=== PATIENT | female | born 1975 | race Caucasian/White ===

== ENCOUNTER 2017-05-23 12:49 | Emergency (ER) | payer BC ==
[~2017-05-23] VITALS: Ht 160 cm; Wt 67.6 kg
[~2017-05-23 12:49] MED LIST: CETI10TA84 PO; ESCI10TA17 PO; LABE1TAB28 PO
[2017-05-23 12:59] VITALS: Ht 160 cm; Wt 67.6 kg
[2017-05-23] MEDS ORDERED: SODIUM CHLORIDE 0.9% 1000ML 1,000 ML IV STA (13:51)
--- NOTE | 2017-05-23 14:32 | EMERGENCY ROOM VISIT NOTE ---
History First contact with patient: 13:35 Chief Complaint: ILLNESS Stated Complaint: FLU, MUCUS, ACHES, DEHYDRATED FEELING History of Present Illness The patient is a 41 year old female who presents to the Emergency Room with complaints of sinus congestion, drainage, cough, scratchy throat, body aches, chills for the past 8 days. Patient states she has been feeling weak and tired , has had a decreased appetite and just not wanting to drink, and is concerned she may be dehydrated, which is what prompted her to come to the emergency department today. Patient was seen in an urgent care 5 days ago, was told she most likely had a virus but was provided with a prescription for Augmentin to take if her symptoms continued. She states that she started the Augmentin 3 days ago and has been taking, she has noticed some improvement in her nasal congestion and drainage, but continues to feel very tired, is concerned that she has not improved after 8 days of illness. She is also concerned for the possibility of the flu. She has not checked her temperature, but states she has felt hot and cold at home. She has been taking Advil and Sudafed for her sinus headaches. She does report a history of chronic sinusitis and was supposed to have sinus surgery a few years ago, but then her symptoms seemed to improve. She also has allergies and hypertension. She denies any neck pain or stiffness, vision changes, chest pain, shortness of breath, back pain, abdominal pain, nausea or vomiting, diarrhea, or rash. She denies any dysuria, urinary frequency, or foul-smelling urine, but does note that her urine has been darker and cloudy recently. Review of Systems A complete 10 point review of systems was reviewed with the patient with pertinent positives and negatives as per history of present illness. All else were negative. Past Medical/Surgical History Medical Problems: (1) Anxiety (2) Chronic Sinusitis, Unspecified (3) Hypertension (4) Hypothyroidism Nos Surgical Problems: (1) Hx of myomectomy Social History Smoking Status: Never Smoker Alcohol Use: none Drug Use: none Marital Status: Housing Status: lives with family Current/Historical Medications Scheduled Cetirizine (Zyrtec), 10 MG PO DAILY Labetalol (Normodyne), 100 MG PO BID Triamcinolone Acetonide (Nasal (Nasacort Allergy 24Hr), 1 SPRAY SPENCER BID Allergies Reviewed in chart Physical Exam Vital Signs Date Time Temp Pulse Resp B/P (MAP) Pulse Ox O2 Delivery O2 Flow Rate FiO2 05/23/17 16:51 37.6 113 20 128/71 98 05/23/17 16:02 107 20 158/77 97 Room Air 05/23/17 14:53 104 16 127/69 97 Room Air 05/23/17 12:59 37.4 102 18 113/70 97 Room Air Physical Exam CONSTITUTIONAL: Pleasant and cooperative. No acute distress. Mildly dehydrated , but otherwise well appearing and well nourished. HEENT: Normocephalic, atraumatic. Tenderness to palpation/percussion of frontal and maxillary sinuses. No facial swelling or erythema. PERRL, EOMI, conjunctiva normal. TMs normal bilaterally. Pharynx normal, no erythema or swelling. Tacky mucous membranes. NECK: Supple, full active range of motion without discomfort. No cervical adenopathy. RESPIRATORY: Clear to auscultation bilaterally with no wheezing, crackles, rhonchi or stridor. Equal expansion bilaterally. CARDIOVASCULAR: Regular rate and rhythm with no murmurs, rubs or gallops. Normal peripheral perfusion. No edema. GASTROINTESTINAL: Soft, nontender, nondistended. No palpable masses or HSM. Bowel sounds present in all quadrants. MUSCULOSKELETAL: Full range of motion of all joints without discomfort. INTEGUMENTARY: No rash or other significant dermatologic conditions noted. NEUROLOGIC: Alert and oriented X 4 with normal affect. Cranial nerves II-XII grossly intact. No focal neurologic deficits noted. Normal speech. Normal strength and sensation of all extremities. Normal gait observed. Medical Decision & Procedures ER Provider Diagnostic Interpretation: CHEST 2 VIEWS ROUTINE CLINICAL HISTORY: Fever, cough. COMPARISON STUDY: No previous studies for comparison. FINDINGS: The cardiac and mediastinal contours are normal. There is no evidence of focal pulmonary consolidation. There is no evidence of failure. No pleural effusions are visualized. IMPRESSION: No active disease in the chest. Laboratory Results 05/23/17 14:00 Red Blood Count 4.17, Mean Corpuscular Volume 88.5, Mean Corpuscular Hemoglobin 29.3, Mean Corpuscular Hemoglobin Concent 33.1, Mean Platelet Volume 9.7, Neutrophils (%) (Auto) 66.2, Lymphocytes (%) (Auto) 20.1, Monocytes (%) (Auto) 11.7, Eosinophils (%) (Auto) 1.2, Basophils (%) (Auto) 0.2, Neutrophils # (Auto ) 6.83, Lymphocytes # (Auto) 2.07, Monocytes # (Auto) 1.20, Eosinophils # (Auto ) 0.12, Basophils # (Auto) 0.02 05/23/17 14:00 Test 05/23/17 14:00 05/23/17 14:20 White Blood Count 10.30 K/uL (4.8-10.8) Red Blood Count 4.17 M/uL (4.2-5.4) Hemoglobin 12.2 g/dL (12.0-16.0) Hematocrit 36.9 % (37-47) Mean Corpuscular Volume 88.5 fL (80-100) Mean Corpuscular Hemoglobin 29.3 pg (25-34) Mean Corpuscular Hemoglobin Concent 33.1 g/dl (32-36) Platelet Count 414 K/uL (130-400) Mean Platelet Volume 9.7 fL (7.4-10.4) Neutrophils (%) (Auto) 66.2 % Lymphocytes (%) (Auto) 20.1 % Monocytes (%) (Auto) 11.7 % Eosinophils (%) (Auto) 1.2 % Basophils (%) (Auto) 0.2 % Neutrophils # (Auto) 6.83 K/uL (1.4-6.5) Lymphocytes # (Auto) 2.07 K/uL (1.2-3.4) Monocytes # (Auto) 1.20 K/uL (0.11-0.59) Eosinophils # (Auto) 0.12 K/uL (0-0.5) Basophils # (Auto) 0.02 K/uL (0-0.2) RDW Standard Deviation 43.5 fL (36.4-46.3) RDW Coefficient of Variation 13.5 % (11.5-14.5) Immature Granulocyte % (Auto) 0.6 % Immature Granulocyte # (Auto) 0.06 K/uL (0.00-0.02) Anion Gap 5.0 mmol/L (3-11) Est Creatinine Clear Calc Drug Dose 94.2 ml/min Estimated GFR () 118.3 Estimated GFR (Non- 102.1 BUN/Creatinine Ratio 9.7 (10-20) Calcium Level 9.1 mg/dl (8.5-10.1) Total Bilirubin 0.3 mg/dl (0.2-1) Aspartate Amino Transf (AST/SGOT) 8 U/L (15-37) Alanine Aminotransferase (ALT/SGPT) 31 U/L (12-78) Alkaline Phosphatase 71 U/L (45-117) Total Protein 7.9 gm/dl (6.4-8.2) Albumin 3.6 gm/dl (3.4-5.0) Globulin 4.3 gm/dl (2.5-4.0) Albumin/Globulin Ratio 0.8 (0.9-2) Urine Color YELLOW Urine Appearance CLEAR (CLEAR) Urine pH 5.0 (4.5-7.5) Urine Specific [place] 1.014 (1.000-1.030) Urine Protein NEG (NEG) Urine Glucose (UA) NEG (NEG) Urine Ketones NEG (NEG) Urine Occult Blood NEG (NEG) Urine Nitrite NEG (NEG) Urine Bilirubin NEG (NEG) Urine Urobilinogen NEG (NEG) Urine Leukocyte Esterase NEG (NEG) Urine Test NEG (NEG) Influenza Type A (RT-PCR) Neg for Influ A (NEG) Influenza Type A Antigen Neg for Influ A (NEG) Influenza Type B Antigen Neg for Influ B (NEG) Influenza Type B (RT-PCR) Neg for Influ B (NEG) Medications Administered Medications (Trade) Dose Ordered Sig/Darius Route Start Time Stop Time Status Last Admin Dose Admin Sodium Chloride 1,000 ml @ 999 mls/hr Q1H1M STAT IV 05/23/17 13:51 05/23/17 14:51 DC 05/23/17 14:30 999 MLS/HR Ketorolac Tromethamine (Toradol Inj) 15 mg NOW STAT IV 05/23/17 16:05 05/23/17 16:06 DC 05/23/17 16:41 15 MG Albuterol (Ventolin Hfa Inhaler) 2 puffs NOW ONCE INH 05/23/17 16:30 05/23/17 16:31 DC 05/23/17 16:41 2 PUFFS Medical Decision CC: Patient presenting with complaint of flulike symptoms, body aches, dehydration Interpretation of Labs: No leukocytosis, no anemia, no significant electrolyte abnormalities, normal renal function, normal liver enzymes. Influenza A/B negative. UA negative, urine negative. Differential Diagnosis: Includes, but not limited to viral URI, sinusitis, influenza, otitis media, bronchitis, pneumonia, dehydration, electrolyte abnormality, among others. Medication Reconciliation: I attest that I have personally reviewed the patient' s current medication list. Vital signs review: I reviewed the patient's vital signs and interpret them as follows: T: Afebrile; BP: Normotensive; HR: Tachycardic; RR: Within normal limits; Pulse Ox: Within normal limits on room air. Blood pressure screening: The patient was found to have normal blood pressure on screening and does not require follow-up for repeat blood pressure check. Summary: Patient was evaluated at bedside, history and physical exam performed. Patient alert and oriented, in no acute distress and nontoxic appearing, resting calmly in the stretcher. Patient appears mildly dehydrated. Lungs are clear to auscultation, she does have a dry raspy cough. Orders were placed at bedside for labs, UA and urine , influenza, IV fluids for hydration, IV Toradol for body aches, chest x-ray to evaluate for pneumonia. Patient discussed with Dr. Huston, who agrees with my assessment and plan. Labs reviewed as above, no acute abnormalities. Influenza is negative. Chest x-ray negative for any acute abnormalities, specifically no pneumonia. Patient reassessed multiple times throughout ED stay, she reports she is improved after Toradol and IV hydration/oral fluids. I discussed all results with the patient and plan for discharge. She is concerned about her cough, she is asking for something else to treat this. States that her cough is keeping her up at night, and reports that she has used inhalers in the past when she gets sick like this, I did provide her with an albuterol inhaler. She is slightly more tachycardic, however this is right after using albuterol, and patient continues to feel improved. Patient was instructed to follow closely with her PCP if her symptoms do not improve, and to continue the Augmentin she was already prescribed. She was also given strict return precautions should her symptoms worsen. The patient verbalized understanding of all discharge instructions and was comfortable with the plan. The patient was discharged home in stable condition and ambulatory. Head Trauma GCS Score: 15 Impression Primary Impression: Bronchitis Additional Impression: Sinusitis Departure Information Dispostion Home / Self-Care Condition GOOD Referrals Herbie Loco M.D. (PCP) Patient Instructions ED Headache Sinus, ED Sinusitis Abx Tx, ED URI Viral, My [facility] Additional Instructions You were seen in the emergency department for your bronchitis and sinus infection. Continue taking your prescribed Augmentin for the full course. For your cough, you may use the albuterol inhaler 2 puffs every 4-6 hours as needed. Bronchitis cough may last for several weeks. Drink plenty of fluids to stay well hydrated. For headaches/sinus pain, you may use the following [id number] medications : - Ibuprofen(Motrin, Advil) may be used for fever or pain. Use 600mg every 6-8 hours as needed. Take with food. Avoid using more than 2400mg in a 24 hour period. Do not use 2400mg per day for more than three consecutive days without physician direction. Prolonged inappropriate use can lead to stomach upset or ulcers. (AND/OR) - Acetaminophen(Tylenol) may be used for fever or pain. Use 1000mg every 8 hours as needed. Avoid using more than 3000mg in a 24 hour period. You may try Mucinex to help with sinus congestion and drainage. For acute sinus congestion, you may use pseudoephedrine (Sudafed)--you should obtain this from the pharmacist from behind the counter. Use as directed and not for more than 3 days in a row. You may also use Afrin nasal spray 1-2 sprays to both nostrils every 12 hours for the next 2-3 days to help with severe congestion of your nasal passages. Use warm salt water gargles and drink warm tea to help soothe your throat. Use saline nasal spray to help keep your nasal passages moist and help reduce inflammation. You may also try nasal Flonase or nasal next, 2 sprays to each nostril once a day to help reduce nasal inflammation and drainage. Follow-up with your PCP in the next few days for re-evaluation, or sooner if your symptoms are worsening. If your symptoms have not improved at all after 1 week, you may need antibiotics to clear up your infection. Return to emergency department if you develop symptoms of difficulty breathing, wheezing, chest pain, increased pain or difficulty swallowing, persistent high fevers after taking antibiotics for more than 24 hours, or any other concerns. Work Instructions Return To Work: 2 days Problem Qualifiers Additional Impression: Sinusitis Sinusitis location: unspecified location Chronicity: acute Recurrence: not specified as recurrent Qualified Codes: J01.90 - Acute sinusitis, unspecified
[2017-05-23 14:46] LABS: BASO % 0.2 %; BASO ABS # 0.02 K/uL (0-0.2); EOS % 1.2 %; EOS ABS # 0.12 K/uL (0-0.5); HEMATOCRIT 36.9 % (37-47); HEMOGLOBIN 12.2 g/dL (12.0-16.0); IG# 0.06 K/uL (0.00-0.02); LYMPH % 20.1 %; LYMPH ABS # 2.07 K/uL (1.2-3.4); MEAN CELL VOLUME 88.5 fL (80-100); MEAN CORPUSCULAR HEMOGLOBIN 29.3 pg (25-34); MEAN CORPUSCULAR HGB CONC 33.1 g/dl (32-36); MEAN PLATELET VOLUME 9.7 fL (7.4-10.4); MONO % 11.7 %; NEUT % 66.2 %; NEUT ABS # 6.83 K/uL (1.4-6.5); PLATELET COUNT 414 K/uL (130-400); RED CELL DISTRIBUTION WIDTH CV 13.5 % (11.5-14.5); RED CELL DISTRIBUTION WIDTH SD 43.5 fL (36.4-46.3)
[2017-05-23] MEDS ORDERED: TRIA1SPR4 NAE (14:46)
[2017-05-23 14:54] LABS: ALBUMIN 3.6 gm/dl (3.4-5.0); CALCIUM 9.1 mg/dl (8.5-10.1); CREATININE 0.74 mg/dl (0.60-1.20)
[2017-05-23 14:56] LABS: TOTAL PROTEIN 7.9 gm/dl (6.4-8.2)
[2017-05-23 15:19] LABS: INFLUENZA B ANTIGEN Neg for Influ B (NEG)
--- NOTE | 2017-05-23 15:35 | DIAGNOSTIC IMAGING REPORT ---
CHEST 2 VIEWS ROUTINE CLINICAL HISTORY: Fever, cough. COMPARISON STUDY: No previous studies for comparison. FINDINGS: The cardiac and mediastinal contours are normal. There is no evidence of focal pulmonary consolidation. There is no evidence of failure. No pleural effusions are visualized.[ IMPRESSION: No active disease in the chest. Electronically signed by: Ta Michelle M.D. 05/23/2017 3:33 PM Dictated Date/Time: 05/23/2017 3:33 PM
[2017-05-23 15:53] LABS: INFLUENZA A PCR Neg for Influ A (NEG); INFLUENZA B PCR Neg for Influ B (NEG)
[2017-05-23] MEDS ORDERED: KETOROLAC TROMETHAMINE 30 MG/ML VIAL IV STA (16:05)
[2017-05-23] MEDS ORDERED: ALBUTEROL HFA 8 GM INHALER INH ONE (16:30)
[2017-05-23 16:51] VITALS: BP 128/71; PULSE 113; TEMP 37.6; O2SAT 98
== END 2017-05-23 17:12 | disposition home or self-care (01) ==
LOC: C.EDB 12:50 → C.EDA 17:12
DX: J40 Bronchitis, not specified as acute or chronic (principal); J01.90 Acute sinusitis, unspecified; I10 Essential (primary) hypertension; J30.2 Other seasonal allergic rhinitis; F41.9 Anxiety disorder, unspecified; E03.9 Hypothyroidism, unspecified